=== PATIENT | male | born 1985 | race Caucasian/White ===

== ENCOUNTER 2024-06-15 08:04 | Emergency (ER) | payer OTHER ==
[~2024-06-15] VITALS: Ht 182.9 cm; Wt 112.7 kg
--- OUTSIDE RECORDS SUMMARY | 2024-06-15 08:11 | XMS ---
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 Ml has no Care Guidelines for this patient. [place] VISIT COUNT (12 MO.) [address] [facility] TOTAL 2 NOTE: Visits indicate total known visits. ED/[facility] VISIT TRACKING (12 MO.) 06/15/2024 08:[address] [facility] [place] TYPE: Emergency COMPLAINT: - EAR PROBLEM 06/14/2024 17:52 [facility] TYPE: Emergency COMPLAINT: - POSS INFECTION INPATIENT VISIT TRACKING (12 MO.) No inpatient visits to display in this time frame [email or web address]
[2024-06-15] MEDS ORDERED: AMP/SULBACTAM SOD 3 GM in SODIUM CHLORIDE 0.9% 100 ML IV ONE (09:30)
[2024-06-15] MEDS ORDERED: DOCUSATE SODIUM 100 MG/10 ML UDC OTIC ONE (09:30)
[2024-06-15 09:50] LABS: BASOPHILS 0.7 % (0-2); EOSINOPHILS 1.4 % (0-6); HEMATOCRIT 44.3 % (35.0-50.0); HEMOGLOBIN 15.6 g/dL (12.0-18.0); LYMPHOCYTES 22.3 % (24-44); MCH 31.2 (27-36); MCHC 35.2 g/dl (30-36); MCV 88.7 fl (81-99); MONOCYTES 7.4 % (0-12); NEUTROPHILS 68.2 % (39-80); PLATELET COUNT 337 K/uL (140-440); RDW 12.9 (10.5-15.0)
[2024-06-15 10:08] LABS: ALBUMIN 4.1 g/dL (3.4-5.0); ALBUMIN/GLOBULIN RATIO 1.28 (1.1-2.4); ANION GAP 10.1 (7-21); BILIRUBIN, TOTAL 0.6 mg/dL (0.2-1.0); BUN/CREATININE RATIO 18.6 (6.0-28.6); CREATININE, SERUM 0.86 mg/dL (0.70-1.30); POTASSIUM 4.1 mmol/L (3.5-5.1); PROTEIN, TOTAL 7.3 g/dL (6.4-8.2)
[2024-06-15] MEDS ORDERED: CLOTRIMAZOLE30 ML TOP (10:48)
[2024-06-15 11:09] VITALS: BP 150/96
== END 2024-06-15 11:09 | disposition home or self-care (01) ==
LOC: ED 08:04
PROVIDERS: Emergency Medicine
DX: H60.92 Unspecified otitis externa, left ear (principal)
CPT/HCPCS: 36415; 69209; 80053; 85025; 99283-25; J0295